=== PATIENT | male | born 1985 | race African-American/Black ===

== ENCOUNTER 2020-04-03 21:04 | Emergency (ER) | payer SELFPAY ==
--- NOTE | 2020-04-03 21:54 | RAD ---
EXAM: 4 views of the left knee HISTORY: Knee pain hand laceration after fall COMPARISON: None FINDINGS: No knee effusion is seen. There is no evidence of acute fracture or dislocation. No signifi cant degenerative changes are seen. Mild infrapatellar soft tissue swelling is present. There is a laceration in the infrapatellar soft tissues without radiopaque foreign body. IMPRESSION: No evidence of acute osseous abnormality.
[2020-04-03] MEDS ORDERED: Lidocaine 1% w/Epinephrine 1:100K 20 ML VIAL ONE ×2 (22:09→22:11)
== END 2020-04-04 00:28 | disposition home or self-care (01) ==
LOC: ERS 21:04
DX: S81.012A Laceration without foreign body, left knee, initial encounter (principal); F17.210 Nicotine dependence, cigarettes, uncomplicated; W19.XXXA Unspecified fall, initial encounter
CPT/HCPCS: 12034